=== PATIENT | male | born 1975 | race Caucasian/White ===

== ENCOUNTER 2017-08-18 15:36 | Emergency (ER) | payer OTHER ==
[~2017-08-18] VITALS: Ht 188 cm; Wt 145.2 kg
[2017-08-18 15:55] VITALS: BP 153/95
== END 2017-08-18 17:25 | disposition home or self-care (01) ==
LOC: EME 15:36
DX: S63.501A Unspecified sprain of right wrist, initial encounter (principal); X50.0XXA Overexertion from strenuous movement or load, initial encounter
CPT/HCPCS: 73110; 99281; 99282